=== PATIENT | female | born 1990 | race African-American/Black ===

== ENCOUNTER 2017-07-29 08:31 | Emergency (ER) | payer MEDICAID ==
[~2017-07-29] VITALS: Ht 172.7 cm; Wt 65.0 kg
[2017-07-29] MEDS ORDERED: KETOROLAC 60MG/2ML VIAL IM ONE (11:45)
[2017-07-29 13:01] VITALS: BP 109/69
== END 2017-07-29 13:14 | disposition home or self-care (01) ==
LOC: ER 08:56
DX: J02.9 Acute pharyngitis, unspecified (principal); F12.10 Cannabis abuse, uncomplicated
CPT/HCPCS: 81025; 96372; 99283; J1885

== ENCOUNTER 2022-12-23 18:36 | Emergency (ER) | payer BC, MEDICAID ==
[~2022-12-23] VITALS: Ht 172.7 cm; Wt 64.0 kg
[2022-12-23 18:44] VITALS: O2SAT 100
[2022-12-23] MEDS ORDERED: MORPHINE SULFATE 10 MG/ML CPJ IM ONE (19:30)
[2022-12-23 21:40] VITALS: BP 128/79; PULSE 95; RESP 16
== END 2022-12-23 21:47 | disposition home or self-care (01) ==
LOC: ER 18:36
DX: S43.004A Unspecified dislocation of right shoulder joint, initial encounter (principal); F12.10 Cannabis abuse, uncomplicated; X58.XXXA Exposure to other specified factors, initial encounter; Y93.9 Activity, unspecified; Y92.89 Other specified places as the place of occurrence of the external cause; Y99.8 Other external cause status
CPT/HCPCS: 96372; 99283; J2270; Z7610 ×2; A4565